=== PATIENT | female | born 1995 | race Caucasian/White ===

== ENCOUNTER 2019-02-08 07:01 | Emergency (ER) | payer OTHER, BC ==
[2019-02-08 08:12] LABS: URINE BLOOD (Dip) POC Trace-lysed (NEGATIVE); URINE GLUCOSE (Dip) POC Negative (NEGATIVE); URINE KETONES (Dip) POC 1+ (NEGATIVE); URINE LEUKOCYTE EST (Dip) POC Trace (NEGATIVE); URINE NITRITE (Dip) POC Negative (NEGATIVE); URINE TOTAL PROTEIN POC Trace (NEGATIVE)
[2019-02-08] MEDS: IBUPROFEN 800 MG TAB PO (08:47)
== END 2019-02-08 08:59 | disposition home or self-care (01) ==
LOC: E/R 07:01
DX: R07.9 Chest pain, unspecified (principal); Z87.891 Personal history of nicotine dependence
CPT/HCPCS: 71045; 81003; 81025; 93005; 99284-25

== ENCOUNTER 2019-02-13 16:53 | Emergency (ER) | payer OTHER | END 2019-02-13 18:02 | disposition home or self-care (01) | LOC: FTE 18:02 | DX: J02.9 Acute pharyngitis, unspecified (principal); F17.210 Nicotine dependence, cigarettes, uncomplicated | CPT/HCPCS: 99283; Z7502 ==